=== PATIENT | female | born 1925 | race African-American/Black ===

== ENCOUNTER 2017-05-02 18:34 | Inpatient (IN) | payer MEDICARE, MEDICAID ==
[~2017-05-02] VITALS: Ht 165.1 cm; Wt 48.5 kg
[~2017-05-02 18:34] MED LIST: ASPI-1159 PO; CILO100T PO; FERR-63 PO; LOSA25TA12 PO; Oyster Shell Calcium PO; PRED5TAB48 PO; ROSU40TA PO
[2017-05-02] MEDS ORDERED: SODIUM CHLORIDE 0.9% 1,000 ML IV ONE (23:08)
[2017-05-02] MEDS ORDERED: DEXTROSE 50% WATER 50ML SYRINGE IV ONE (23:30)
[2017-05-03] VITALS (20 sets, daily range): BP systolic 103–169; BP diastolic 36–133
[2017-05-03 00:58] LABS: BASOPHILS % 0.4 % (0.0-2.0); EOSINOPHILS % 3.7 % (0.0-5.0); HEMATOCRIT. 34.1 % (36.0-48.0); HEMOGLOBIN. 11.1 g/dL (12.0-16.0); LYMPHOCYTES % 14.1 % (20.0-50.0); MEAN CORPUSCULAR HEMOGLOBIN 28.1 pg (28.0-32.0); MEAN CORPUSCULAR VOLUME 86.4 fL (81.0-99.0); MEAN PLATELET VOLUME 8.3 fl (7.4-10.4); NEUTROPHILS % 77.8 % (40.0-76.0); PLATELET 281 x1000/uL (130-400); RED BLOOD CELL COUNT 3.94 mill/uL (4.2-5.4); RED CELL DISTRIBUTION WIDTH 16.8 % (11.6-14.6)
[2017-05-03 01:06] LABS: INR 1.2
[2017-05-03 01:08] LABS: CHLORIDE 113 mEq/L (98-107)
[2017-05-03] MEDS ORDERED: SODIUM CHLORIDE 0.9% 1,000 ML IV ONE (01:45)
[2017-05-03] MEDS ORDERED: DEXT 5%/0.9% NACL 1,000 ML IV ONE (05:45)
[2017-05-03] MEDS ORDERED: DEXTROSE 50% WATER 50ML SYRINGE IV ONE ×2 (05:45→06:15)
[2017-05-03] MEDS ORDERED: ACETAMINOPHEN 325MG TABLET PO PRN (09:00)
[2017-05-03] MEDS ORDERED: PREDNISONE 20MG TABLET PO SCH (09:00)
[2017-05-03] MEDS: AMLODIPINE 5MG TABLET PO SCH (12:44)
[2017-05-03] MEDS ORDERED: DEXT 5%/0.45% NACL 1000ML 1,000 ML IV SCH (16:45)
[2017-05-03] MEDS: DEXT 5%/0.45% NACL 1000ML 1,000 ML IV SCH (17:07)
[2017-05-03] MEDS: PANTOPRAZOLE SODIUM 40 MG/VIAL IV SCH (17:08)
[2017-05-03] MEDS: BLOOD SUGAR DIAGNOSTIC STRIP TEST SCH (20:50)
[2017-05-04] VITALS (32 sets, daily range): BP systolic 104–173; BP diastolic 52–76
[2017-05-04] MEDS: DEXT 5%/0.45% NACL 1000ML 1,000 ML IV SCH ×3 (00:17→17:38)
[2017-05-04 06:10] LABS: BASOPHILS % 0.2 % (0.0-2.0); EOSINOPHILS % 1.7 % (0.0-5.0); HEMATOCRIT. 29.7 % (36.0-48.0); HEMOGLOBIN. 9.7 g/dL (12.0-16.0); LYMPHOCYTES % 20.8 % (20.0-50.0); MEAN CORPUSCULAR HEMOGLOBIN 27.8 pg (28.0-32.0); MEAN CORPUSCULAR VOLUME 85.1 fL (81.0-99.0); MEAN PLATELET VOLUME 8.4 fl (7.4-10.4); MONOCYTES % 5.2 % (2.0-8.0); NEUTROPHILS % 72.1 % (40.0-76.0); PLATELET 240 x1000/uL (130-400); RED BLOOD CELL COUNT 3.49 mill/uL (4.2-5.4); RED CELL DISTRIBUTION WIDTH 16.2 % (11.6-14.6)
[2017-05-04] MEDS: BLOOD SUGAR DIAGNOSTIC STRIP TEST SCH ×4 (08:10→21:51)
[2017-05-04] MEDS: PANTOPRAZOLE SODIUM 40 MG/VIAL IV SCH (08:26)
[2017-05-04] MEDS: MEGESTROL ACETATE 400 MG/10 ML UDC PO SCH ×2 (08:27→08:34)
[2017-05-04] MEDS: AMLODIPINE 5MG TABLET PO SCH (08:27)
[2017-05-04] MEDS: DEXTROSE 50% WATER 50ML SYRINGE IV PRN ×2 (08:28→08:45)
[2017-05-04] MEDS ORDERED: PREDNISONE 10MG TABLET PO SCH (09:00)
[2017-05-04] MEDS ORDERED: DEXTROSE 50% WATER 50ML SYRINGE IV PRN (09:15)
[2017-05-04 10:34] LABS: PREALBUMIN 14.7 mg/dL (20.0-40.0)
[2017-05-04 12:25] LABS: CLARITY URINE CLEAR (CLEAR); COLOR URINE YELLOW (YELLOW); KETONES URINE NEGATIVE (NEGATIVE); LEUKOCYTE ESTERASE URINE NEGATIVE (NEGATIVE); NITRITE URINE NEGATIVE (NEGATIVE); OCCULT BLOOD URINE TRACE (NEGATIVE); PROTEIN URINE TRACE (NEGATIVE); SPECIFIC GRAVITY URINE 1.011 (1.005-1.030); UROBILINOGEN URINE 0.2 E.U./dL (0.2-1.0)
[2017-05-04] MEDS: PREDNISONE 10MG TABLET PO SCH (16:03)
[2017-05-05] VITALS (15 sets, daily range): BP systolic 119–186; BP diastolic 47–91
[2017-05-05] MEDS: DEXT 5%/0.45% NACL 1000ML 1,000 ML IV SCH (04:56)
[2017-05-05 06:31] LABS: HEMATOCRIT. 30.7 % (36.0-48.0); HEMOGLOBIN. 10.1 g/dL (12.0-16.0); LYMPHOCYTES % 12.8 % (20.0-50.0); MEAN CORPUSCULAR HEMOGLOBIN 28.4 pg (28.0-32.0); MEAN CORPUSCULAR VOLUME 86.3 fL (81.0-99.0); MEAN PLATELET VOLUME 8.8 fl (7.4-10.4); NEUTROPHILS % 85.2 % (40.0-76.0); PLATELET 242 x1000/uL (130-400); RED BLOOD CELL COUNT 3.56 mill/uL (4.2-5.4); RED CELL DISTRIBUTION WIDTH 15.9 % (11.6-14.6)
[2017-05-05 08:07] LABS: PHOSPHORUS 3.6 mg/dL (2.5-4.9)
[2017-05-05] MEDS: BLOOD SUGAR DIAGNOSTIC STRIP TEST SCH ×4 (08:15→17:12)
[2017-05-05] MEDS: PANTOPRAZOLE SODIUM 40 MG/VIAL IV SCH (10:21)
[2017-05-05] MEDS: AMLODIPINE 5MG TABLET PO SCH (10:21)
[2017-05-05] MEDS: PREDNISONE 10MG TABLET PO SCH ×2 (10:21→17:09)
[2017-05-05] MEDS: MEGESTROL ACETATE 400 MG/10 ML UDC PO SCH (10:40)
[2017-05-05] MEDS: SODIUM BICARBONATE 100 MEQ in DEXTROSE 5% WATER 1,000 ML IV SCH (14:29)
[2017-05-05] MEDS ORDERED: MAGNESIUM 1 G PREMIX 100 ML IV NR (14:30)
[2017-05-06] VITALS (12 sets, daily range): BP systolic 102–154; BP diastolic 56–88
[2017-05-06 09:48] LABS: HEMATOCRIT 30.6 % (36.0-48.0); HEMOGLOBIN 10.1 g/dL (12.0-16.0); MEAN CORPUSCULAR HEMOGLOBIN 28.1 pg (28.0-32.0); MEAN CORPUSCULAR VOLUME 85.3 fL (81.0-99.0); PLATELET 243 x1000/uL (130-400); RED BLOOD CELL COUNT 3.59 mill/uL (4.2-5.4); RED CELL DISTRIBUTION WIDTH 15.9 % (11.6-14.6)
[2017-05-06] MEDS: AMLODIPINE 5MG TABLET PO SCH (09:52)
[2017-05-06] MEDS: PREDNISONE 10MG TABLET PO SCH ×2 (09:52→16:34)
[2017-05-06] MEDS: MEGESTROL ACETATE 400 MG/10 ML UDC PO SCH (09:53)
[2017-05-06] MEDS: FAMOTIDINE 20MG TABLET PO SCH (09:53)
[2017-05-06] MEDS: BLOOD SUGAR DIAGNOSTIC STRIP TEST SCH ×3 (12:51→21:47)
[2017-05-06] MEDS: SODIUM BICARBONATE 100 MEQ in DEXTROSE 5% WATER 1,000 ML IV SCH (15:32)
[2017-05-07] VITALS (12 sets, daily range): BP systolic 90–154; BP diastolic 42–82
[2017-05-07 06:28] LABS: HEMATOCRIT 28.4 % (36.0-48.0); HEMOGLOBIN 9.6 g/dL (12.0-16.0); MEAN CORPUSCULAR HEMOGLOBIN 28.3 pg (28.0-32.0); MEAN CORPUSCULAR VOLUME 83.5 fL (81.0-99.0); PLATELET 238 x1000/uL (130-400); RED CELL DISTRIBUTION WIDTH 15.6 % (11.6-14.6)
[2017-05-07] MEDS: BLOOD SUGAR DIAGNOSTIC STRIP TEST SCH (06:36)
[2017-05-07] MEDS: MEGESTROL ACETATE 400 MG/10 ML UDC PO SCH (08:21)
[2017-05-07] MEDS: FAMOTIDINE 20MG TABLET PO SCH (08:22)
[2017-05-07] MEDS: PREDNISONE 10MG TABLET PO SCH ×2 (08:22→16:52)
[2017-05-07] MEDS: AMLODIPINE 5MG TABLET PO SCH (08:22)
[2017-05-07] MEDS: DEXT 5%/0.9% NACL 1,000 ML IV SCH (11:04)
[2017-05-08] VITALS (12 sets, daily range): BP systolic 112–147; BP diastolic 45–87
[2017-05-08] MEDS: DEXT 5%/0.9% NACL 1,000 ML IV SCH (05:54)
[2017-05-08 07:18] LABS: BASOPHILS % 0.1 % (0.0-2.0); EOSINOPHILS % 0.4 % (0.0-5.0); HEMATOCRIT. 29.9 % (36.0-48.0); LYMPHOCYTES % 15.8 % (20.0-50.0); MEAN CORPUSCULAR HEMOGLOBIN 28.2 pg (28.0-32.0); MEAN CORPUSCULAR VOLUME 84.9 fL (81.0-99.0); MEAN PLATELET VOLUME 8.3 fl (7.4-10.4); MONOCYTES % 6.2 % (2.0-8.0); NEUTROPHILS % 77.5 % (40.0-76.0); PLATELET 223 x1000/uL (130-400); RED BLOOD CELL COUNT 3.53 mill/uL (4.2-5.4); RED CELL DISTRIBUTION WIDTH 15.4 % (11.6-14.6)
[2017-05-08 07:52] LABS: PHOSPHORUS 3.2 mg/dL (2.5-4.9)
[2017-05-08] MEDS: MEGESTROL ACETATE 400 MG/10 ML UDC PO SCH (09:01)
[2017-05-08] MEDS: AMLODIPINE 5MG TABLET PO SCH (09:02)
[2017-05-08] MEDS: FAMOTIDINE 20MG TABLET PO SCH (09:02)
[2017-05-08] MEDS: PREDNISONE 10MG TABLET PO SCH ×2 (09:02→16:23)
[2017-05-08 09:07] LABS: COMPLEMENT C3 105 mg/dL (82-167)
[2017-05-08 13:07] LABS: ANTI-MYELOPEROXIDASE AB < 9.0 U/mL (0.0-9.0); ANTI-PROTEINASE 3 ABS < 3.5 U/mL (0.0-3.5)
[2017-05-09] VITALS (13 sets, daily range): BP systolic 96–155; BP diastolic 43–78
[2017-05-09] MEDS: DEXT 5%/0.9% NACL 1,000 ML IV SCH (02:30)
[2017-05-09] MEDS: PREDNISONE 10MG TABLET PO SCH ×2 (09:00→16:40)
[2017-05-09] MEDS: AMLODIPINE 5MG TABLET PO SCH (09:00)
[2017-05-09] MEDS: FAMOTIDINE 20MG TABLET PO SCH (09:00)
[2017-05-09] MEDS: MEGESTROL ACETATE 400 MG/10 ML UDC PO SCH (09:00)
[2017-05-09 10:07] LABS: ANTI-DNA DOUBLE STRANDED QUANT 1 IU/mL (0-9)
[2017-05-09] MEDS ORDERED: KCL 20MEQ/100ML PREMIX 100 ML IV SCH (12:00)
[2017-05-09 13:09] LABS: ATYPICAL P-ANCA <1:20 titer (Neg:<1:20); CYTOPLASMIC C-ANCA <1:20 titer (Neg:<1:20); PERINUCLEAR P-ANCA <1:20 titer (Neg:<1:20)
[2017-05-10] VITALS (10 sets, daily range): BP systolic 118–148; BP diastolic 52–70
[2017-05-10] MEDS: DEXT 5%/0.9% NACL 1,000 ML IV SCH (03:13)
[2017-05-10 04:15] LABS: ANA IFA Positive (.); ANA SPECKLED PATTERN >1:1280 (.)
[2017-05-10 07:33] LABS: CHLORIDE 107 mEq/L (98-107)
[2017-05-10] MEDS: MEGESTROL ACETATE 400 MG/10 ML UDC PO SCH (09:09)
[2017-05-10] MEDS: AMLODIPINE 5MG TABLET PO SCH (09:09)
[2017-05-10] MEDS: FAMOTIDINE 20MG TABLET PO SCH (09:09)
[2017-05-10] MEDS: PREDNISONE 10MG TABLET PO SCH (09:09)
== END 2017-05-10 16:25 | disposition home health service (06) | DRG 682 ==
LOC: ER 18:34 → CVICU 05-03 01:41 → EDBEDREQ 05-03 01:44 → EDBEDREQDT 05-03 01:44 → EDBEDREQTM 05-03 01:44 → EDBEDREQSVC 05-03 06:10 → ENRESERV 05-03 07:10 → 5EST 05-04 18:20
PROVIDERS: ADMIT Specialist; ATTEND Specialist
DX: N17.0 Acute kidney failure with tubular necrosis (principal); E43 Unspecified severe protein-calorie malnutrition; E87.2 Acidosis; M32.9 Systemic lupus erythematosus, unspecified; J84.89 Other specified interstitial pulmonary diseases; D64.9 Anemia, unspecified; E83.42 Hypomagnesemia; E86.0 Dehydration; E46 Unspecified protein-calorie malnutrition; Z68.1 Body mass index [BMI] 19.9 or less, adult; J44.9 Chronic obstructive pulmonary disease, unspecified; M06.9 Rheumatoid arthritis, unspecified; M13.0 Polyarthritis, unspecified; I73.00 Raynaud's syndrome without gangrene; I11.9 Hypertensive heart disease without heart failure; I25.10 Atherosclerotic heart disease of native coronary artery without angina pectoris; E16.2 Hypoglycemia, unspecified; E78.00 Pure hypercholesterolemia, unspecified; E78.5 Hyperlipidemia, unspecified; E87.6 Hypokalemia; F03.90 Unspecified dementia, unspecified severity, without behavioral disturbance, psychotic disturbance, mood disturbance, and anxiety; G40.909 Epilepsy, unspecified, not intractable, without status epilepticus; I77.6 Arteritis, unspecified; M19.90 Unspecified osteoarthritis, unspecified site; M81.0 Age-related osteoporosis without current pathological fracture; N28.1 Cyst of kidney, acquired; Z79.52 Long term (current) use of systemic steroids; Z82.3 Family history of stroke; Z82.49 Family history of ischemic heart disease and other diseases of the circulatory system; Z86.73 Personal history of transient ischemic attack (TIA), and cerebral infarction without residual deficits; Z87.440 Personal history of urinary (tract) infections; Z87.442 Personal history of urinary calculi; Z95.1 Presence of aortocoronary bypass graft; Z79.82 Long term (current) use of aspirin
CPT/HCPCS: 36415; 71045; 71046; 76770; 80048; 80053; 81003; 82085; 82550; 82570; 82962; 83520; 83605; 83690; 83735; 83880; 84100; 84134; 84300; 84484; 84540; 84550; 85025; 85027; 85610; 85651; 86160; 86225; 86256; 86431; 86880; 87040; 87086; 87804; 93005; 96361; 96374; 96376; 97116; 97162; 97166; 97530; 97535; 99291; A6261; C9113; J3475; J3480; J3490; J7030; J7042; J7070; J7512